=== PATIENT | female | born 1945 | race Caucasian/White ===

== ENCOUNTER 2021-05-23 12:40 | Emergency (ER) | payer MEDICARE, SELFPAY ==
--- NOTE | ~2021-05-23 | XR_ITS ---
EXAMINATION: XR wrist RT min 3V INDICATION: Right wrist pain TECHNIQUE: Four views of the right wrist are obtained. COMPARISON: None available FINDINGS: Bone alignment is normal. There is no acute fracture. 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 Wrist soft tissue swelling is noted. IMPRESSION: 1. No acute osseous abnormality. Reviewed, dictated and finalized at location B.
[2021-05-23 12:58] VITALS: BP 127/76; PULSE 79; RESP 18; TEMP 36.8; O2SAT 100
--- NOTE | 2021-05-23 13:38 | ED.UPPEXIN ---
HPI - Extremity Injury (Upper) General Chief Complaint: Extremity Injury, Upper Stated Complaint: Fell off Porch possible injury to right Wrist Time Seen by Provider: 05/23/21 13:20 Source: patient and RN notes reviewed Mode of arrival: ambulatory Limitations: no limitations History of Present Illness HPI narrative: Patient presents today complaining of right wrist pain. Reports she fell off her porch in February and has been having some mild pain in her right wrist since that time. Reports she woke up this morning with more severe pain without any acute injury. States she does overuse the wrist while doing yard work. She currently rates her pain 10/10 and has tried no medication for symptoms prior to arrival. Pain increases with any movement or touching. MD complaint: injury to: right and wrist Related Data Home Medications Medication Instructions Recorded Confirmed metoprolol tartrate 25 mg PO BID 05/23/21 05/23/21 Allergies Allergy/AdvReac Type Severity Reaction Status Date / Time No Known Allergies Allergy Verified 05/23/21 13:04 Review of Systems Review of Systems: Narrative: CONSTITUTIONAL: Denies body aches, fever, chills, or sweats. EYES: Denies visual changes, redness, or discharge. ENT: Denies rhinorrhea, congestion, sore throat, or otalgia. CARDIOVASCULAR: Denies chest pain, palpitations, or edema. RESPIRATORY: Denies cough or dyspnea. GASTROINTESTINAL: Denies abdominal pain, nausea, vomiting, or diarrhea. GENITOURINARY: Denies dysuria or hematuria. SKIN: Denies rash, itching, or wounds. MUSCULOSKELETAL: Denies back pain, or myalgia. + Right wrist pain NEUROLOGIC: Denies headache, numbness, tingling, or weakness. PSYCH: Denies depression or anxiety. PMFSH Comments At time of signature, I have reviewed and agree with nursing past medical, surgical, social and family history unless otherwise noted. Please see nursing chart for further information. There is no relevant family history pertinent to the presenting complaint Exam Narrative: Exam Narrative: GENERAL: Well-appearing, well-nourished, and in no acute distress. HEAD: Normocephalic, atraumatic. EYES: EOMI. No redness or drainage. Conjunctivae normal. ENT: Mucous membranes pink and moist. NECK: Normal AROM. CHEST: No respiratory distress. EXTREMITIES: Right wrist: Pain and tenderness with light touch to the distal radius area with mild soft tissue swelling. No ecchymosis or erythema noted. Distal sensation intact. Capillary refill normal. Radial pulse normal. Flexion and extension causes increased pain, pronation and supination cause pain to a lesser degree. SKIN: Warm, dry, no rash. Capillary refill normal. Normal skin turgor. NEURO: No focal deficits. Alert and oriented x3. Gait steady. PSYCH: Normal affect. No signs of depression or anxiety. Course Vital Signs Vital signs: Vital Signs Temperature 98.3 F 05/23/21 12:58 Pulse Rate 79 05/23/21 12:58 Respiratory Rate 18 05/23/21 12:58 Blood Pressure 127/76 05/23/21 12:58 Pulse Oximetry 100 05/23/21 12:58 Temperature 98.3 F 05/23/21 12:58 Pulse Rate 79 05/23/21 12:58 Respiratory Rate 18 05/23/21 12:58 Blood Pressure 127/76 05/23/21 12:58 Pulse Oximetry 100 05/23/21 12:58 Reviewed. Pt has been instructed to follow up with her PCP regarding her elevated blood pressure today. MDM - Extremity Injury (Upper) Differential Diagnosis Differential diagnosis: Likely sprain and strain of wrist, fracture of wrist and other (Tendinitis, gout) Imaging Data Radiologist's impression: ITS Impressions Wrist X-Ray 05/23/21 13:18 IMPRESSION: 1. No acute osseous abnormality. Critical Care Time Critical Care Time Critical Care Time: No Discharge Plan Discharge Clinical Impression: Right wrist tendinitis Patient Disposition: Home, Self-Care Condition: Stable Instructions: Tendinitis (ED) Additional Instructions: Kash
== END 2021-05-23 13:45 | disposition home or self-care (01) ==
PROVIDERS: Emergency Provider Nurse Practitioner; PCP Family Medicine
DX: M77.8 Other enthesopathies, not elsewhere classified (principal); I10 Essential (primary) hypertension; Z85.038 Personal history of other malignant neoplasm of large intestine; Z92.21 Personal history of antineoplastic chemotherapy
CPT/HCPCS: 73110; 99213; G0463